=== PATIENT | male | born 1985 | race Caucasian/White ===

== ENCOUNTER 2019-06-19 10:31 | Emergency (ER) | payer OTHER ==
[~2019-06-19] VITALS: Ht 172.7 cm; Wt 90.7 kg
[~2019-06-19 10:31] MED LIST: ATIVAN; ATIVAN0.5 MG PO; ATIVAN1 MG PO; LOMOTIL 0.025 M1 TA1 PO; MIRTAZAPINE15 M1 PO; MOTRIN800 MG PO; NORFLEX100 MG PO; PRILOSEC10 MG PO; PRILOSEC20 MG PO; TESSALON PERLE100 M1 PO; VISTARIL25 MG PO; XANAX0.5 MG PO; ZITHROMAX Z PA250 MG PO; ZOFRAN ODT4 MG SL; ZOLOFT50 MG PO; Zofran4 MG PO
[2019-06-19 11:10] LABS: BASO % 0.6 % (0.0-1.0); EOS # 0.1 10*3/uL (0.0-0.4); HEMATOCRIT 44.6 % (42.0-52.0); HEMOGLOBIN 15.1 g/dl (14.0-18.0); LYMPH # 1.8 10*3/uL (1.3-4.4); LYMPH % 29.5 % (27.0-41.0); MEAN CELL VOLUME 88.8 fl (80.0-94.0); MEAN CORPUSCULAR HGB 30.1 pg (27.0-31.0); MEAN CORPUSCULAR HGB CONC 33.9 g/dl (33.0-37.0); MEAN PLATELET VOLUME 9.1 fl (9.6-12.3); MONO # 0.6 10*3/uL (0.1-1.0); MONO % 9.6 % (3.0-9.0); NEUT # 3.7 10*3/uL (2.3-7.9); NEUT % 59.1 % (47.0-73.0); PLATELET COUNT AUTOMATED 317 10*3/uL (130-400); RED BLOOD COUNT 5.02 10*6/uL (4.50-5.90); WHITE BLOOD COUNT 6.2 10*3/uL (4.8-10.8)
[2019-06-19 11:19] LABS: INTERNATIONAL NORM RATIO 0.9 (2.0-3.5)
[2019-06-19 11:26] LABS: ALBUMIN 3.9 gm/dl (3.1-4.5); ALKALINE PHOSPHATASE 57 U/L (45-117); BUN 14 mg/dl (7-24); CHLORIDE 108 mmol/L (98-107); CREATININE 1.07 mg/dL (0.70-1.30); LIPASE 116 U/L (73-393); POTASSIUM 3.8 mmol/L (3.5-5.1); SGOT/AST 8 IU/L (3-35); SGPT/ALT 23 U/L (12-78); SODIUM 140 mmol/L (136-145); TOTAL PROTEIN 7.4 gm/dL (6.4-8.2)
== END 2019-06-19 13:34 | disposition home or self-care (01) ==
LOC: ED 10:31
PROVIDERS: Nurse Practitioner Family
DX: R10.9 Unspecified abdominal pain (principal); Z88.0 Allergy status to penicillin

== ENCOUNTER 2019-06-23 09:35 | Emergency (ER) | payer MEDICARE ==
[~2019-06-23] VITALS: Ht 172.7 cm; Wt 90.7 kg
== END 2019-06-23 11:25 | disposition home or self-care (01) ==
LOC: ED 09:35
DX: G47.9 Sleep disorder, unspecified (principal); R05 Cough; R06.02 Shortness of breath; R09.3 Abnormal sputum; F45.21 Hypochondriasis; Z88.0 Allergy status to penicillin; Z79.899 Other long term (current) drug therapy; F41.9 Anxiety disorder, unspecified; R10.9 Unspecified abdominal pain

== ENCOUNTER 2019-08-17 04:52 | Emergency (ER) | payer MEDICARE, OTHER ==
[~2019-08-17] VITALS: Ht 172.7 cm; Wt 97.5 kg
--- NOTE | ~2019-08-17 | EKG ---
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: : 1985 Requested By: DANK RUSH Order Number: [id number] Reading MD: Alon Ferguson MD Measurements Intervals [place] Rate: 72 P: 13 PA: 161 QRS: -20 QRSD: 85 T: -3 QT: 369 QTc: 404 Interpretive Statements Sinus rhythm Borderline left axis deviation Borderline T abnormalities, inferior leads ST elev, probable normal early repol pattern Compared to ECG 06/04/2019 23:21:34 T-wave abnormality now present ST (T wave) deviation still present Electronically Signed On 08-17-2019 8:54:39 PDT by Alon Ferguson MD CM:EKGRPT:ELECTROCARDIOGRAM REPORT [id number] DANK RUSH MD EPIPHANY DRAFT REPORT DANK RUSH MD
[2019-08-17 05:44] LABS: BASO # 0.1 10*3/uL (0.0-0.1); BASO % 0.7 % (0.0-1.0); EOS # 0.2 10*3/uL (0.0-0.4); EOS % 1.8 % (1.0-4.0); HEMATOCRIT 45.7 % (42.0-52.0); HEMOGLOBIN 15.4 g/dl (14.0-18.0); LYMPH # 3.4 10*3/uL (1.3-4.4); LYMPH % 38.7 % (27.0-41.0); MEAN CELL VOLUME 88.1 fl (80.0-94.0); MEAN CORPUSCULAR HGB 29.7 pg (27.0-31.0); MEAN CORPUSCULAR HGB CONC 33.7 g/dl (33.0-37.0); MEAN PLATELET VOLUME 9.1 fl (9.6-12.3); NEUT # 4.1 10*3/uL (2.3-7.9); NEUT % 47.7 % (47.0-73.0); PLATELET COUNT AUTOMATED 341 10*3/uL (130-400); RED BLOOD COUNT 5.19 10*6/uL (4.50-5.90); RED CELL DISTRI WIDTH 12.5 % (0-14.5); WHITE BLOOD COUNT 8.7 10*3/uL (4.8-10.8)
[2019-08-17 06:01] LABS: ALBUMIN 3.7 gm/dl (3.1-4.5); ALKALINE PHOSPHATASE 70 U/L (45-117); BUN 16 mg/dl (7-24); CHLORIDE 108 mmol/L (98-107); CREATININE 1.16 mg/dL (0.70-1.30); POTASSIUM 3.7 mmol/L (3.5-5.1); SGOT/AST 9 IU/L (3-35); SGPT/ALT 22 U/L (12-78); SODIUM 141 mmol/L (136-145); TOTAL PROTEIN 7.3 gm/dL (6.4-8.2)
[2019-08-17 06:03] LABS: TROPONIN I < 0.015 ng/ml (<0.045)
== END 2019-08-17 07:00 | disposition home or self-care (01) ==
LOC: ED 04:52
PROVIDERS: Emergency Medicine Emergency Medical Services
DX: F41.1 Generalized anxiety disorder (principal); Z88.0 Allergy status to penicillin

== ENCOUNTER 2020-10-12 23:59 | Emergency (ER) | payer MEDICARE, OTHER ==
[~2020-10-12] VITALS: Ht 172.7 cm; Wt 99.8 kg
== END 2020-10-13 01:28 | disposition home or self-care (01) ==
LOC: ED 23:59
DX: R05 Cough (principal); F41.9 Anxiety disorder, unspecified; F32.9 Major depressive disorder, single episode, unspecified; Z88.0 Allergy status to penicillin

== ENCOUNTER 2024-01-25 19:27 | Emergency (ER) | payer BC, OTHER ==
[~2024-01-25] VITALS: Ht 172.7 cm; Wt 99.8 kg
[2024-01-25] MEDS ORDERED: SODIUM CHLORIDE 0.9% 1,000 ML IV ONE (19:55)
[2024-01-25] MEDS ORDERED: IOHEXOL 300 MG/ML 100 ML VIAL IV ONE (20:00)
[2024-01-25 20:15] LABS: BASO # 0.1 10*3/uL (0.0-0.1); BASO % 0.8 % (0.0-1.0); EOS # 0.3 10*3/uL (0.0-0.4); EOS % 3.4 % (1.0-4.0); HEMATOCRIT 42.9 % (42.0-52.0); LYMPH # 2.1 10*3/uL (1.3-4.4); LYMPH % 28.1 % (27.0-41.0); MEAN CELL VOLUME 88.5 fl (80.0-94.0); MEAN CORPUSCULAR HGB 29.9 pg (27.0-31.0); MEAN CORPUSCULAR HGB CONC 33.8 g/dl (33.0-37.0); MONO # 0.8 10*3/uL (0.1-1.0); MONO % 10.1 % (3.0-9.0); NEUT # 4.2 10*3/uL (2.3-7.9); NEUT % 57.3 % (47.0-73.0); PLATELET COUNT AUTOMATED 318 10*3/uL (130-400); RED BLOOD COUNT 4.85 10*6/uL (4.50-5.90); RED CELL DISTRI WIDTH 12.9 % (0-14.5); WHITE BLOOD COUNT 7.4 10*3/uL (4.8-10.8)
[2024-01-25 20:26] LABS: ACT PARTIAL THROMBO TIME 27.4 SECONDS (20.0-32.1)
[2024-01-25 20:32] LABS: ALKALINE PHOSPHATASE 62 U/L (46-116); BUN 13 mg/dl (9-23); CHLORIDE 106 mmol/L (98-107); LIPASE 34 U/L (12-53); POTASSIUM 3.6 mmol/L (3.4-5.1); SGPT/ALT 40 U/L (5-49); TOTAL PROTEIN 7.3 gm/dL (6.0-8.0)
[2024-01-25] MEDS ORDERED: ANUSOL HC,ANUCO25 MG PO (22:50)
== END 2024-01-25 22:57 | disposition home or self-care (01) ==
LOC: ED 19:27
PROVIDERS: Internal Medicine
DX: K92.1 Melena (principal); Z88.0 Allergy status to penicillin

== ENCOUNTER 2024-09-09 06:38 | Emergency (ER) | payer BC, OTHER ==
[~2024-09-09] VITALS: Ht 172.7 cm; Wt 97.5 kg
[~2024-09-09 06:38] MED LIST changes: +ANUSOL HC,ANUCO25 MG PO
== END 2024-09-09 08:19 | disposition home or self-care (01) ==
LOC: ED 06:38
DX: J02.8 Acute pharyngitis due to other specified organisms (principal); F41.9 Anxiety disorder, unspecified; F32.A Depression, unspecified; K21.9 Gastro-esophageal reflux disease without esophagitis; Z88.0 Allergy status to penicillin

== ENCOUNTER 2025-08-14 16:43 | Emergency (ER) | payer BC, OTHER ==
[~2025-08-14] VITALS: Ht 172.7 cm; Wt 99.8 kg
[2025-08-14] MEDS ORDERED: METHOCARBAMOL750 M1 PO (18:31)
[2025-08-14] MEDS ORDERED: PREDNISONE20 M1 PO (18:31)
== END 2025-08-14 18:30 | disposition home or self-care (01) ==
LOC: ED 16:43
DX: M54.12 Radiculopathy, cervical region (principal); F41.9 Anxiety disorder, unspecified; K21.9 Gastro-esophageal reflux disease without esophagitis; M62.838 Other muscle spasm; F32.A Depression, unspecified; R20.0 Anesthesia of skin; Z88.0 Allergy status to penicillin